=== PATIENT | female | born 1990 | race Hispanic/Latino ===

== ENCOUNTER → 2020-01-07 | Outpatient (REF) | payer OTHER, SELFPAY | LOC: M LAB REF 17:19 | PROVIDERS: ATTEND Nurse Practitioner Family | DX: Z12.4 Encounter for screening for malignant neoplasm of cervix (principal) ==

== ENCOUNTER → 2023-01-01 | Outpatient (CLI) | payer BC, OTHER | LOC: M WHC 06:59 | PROVIDERS: ATTEND Obstetrics & Gynecology | DX: O36.80X0 Pregnancy with inconclusive fetal viability, not applicable or unspecified (principal); Z3A.01 Less than 8 weeks gestation of pregnancy ==

== ENCOUNTER 2023-01-08 08:56 | Emergency (ER) | payer BC, OTHER ==
[~2023-01-08] VITALS: Ht 154.9 cm; Wt 84.1 kg
[2023-01-08 11:40] LABS: BASO % 0.6 % (0.0-1.0); EOS # 0.1 10^3/uL (0.0-0.5); EOS % 0.7 % (0.0-3.0); HEMATOCRIT 39.4 % (36.0-47.0); HEMOGLOBIN 13.6 g/dl (12.0-15.5); LYMPH # 1.7 10^3/uL (1.5-5.0); LYMPH % 23.9 % (24.0-44.0); MEAN CORPUSCULAR HEMOGLOBIN 29.6 pg (27.0-33.0); MEAN CORPUSCULAR HGB CONC 34.5 g/dl (32.0-36.5); MEAN CORPUSCULAR VOLUME 85.7 fl (80.0-96.0); MONO # 0.4 10^3/uL (0.0-0.8); MONO % 5.2 % (2.0-8.0); NEUTROPHILS # 4.9 10^3/uL (1.5-8.5); NEUTROPHILS % 69.3 % (36.0-66.0); PLATELET COUNT, AUTOMATED 195 10^3/uL (150-450); WHITE BLOOD COUNT 7.1 10^3/uL (4.0-10.0)
[2023-01-08 14:33] LABS: GC DNA AMPLIFICATION NEGATIVE (NEGATIVE)
[2023-01-08 14:34] VITALS: BP 127/72; TEMP 98; O2SAT 99
== END 2023-01-08 14:39 | disposition home or self-care (01) ==
LOC: M ED 08:56
DX: O02.1 Missed abortion (principal)

== ENCOUNTER → 2023-04-02 | Outpatient (CLI) | payer BC, OTHER | LOC: M PLALAB 15:30 | PROVIDERS: ATTEND Advanced Practice Midwife | DX: O20.8 Other hemorrhage in early pregnancy (principal) ==

== ENCOUNTER → 2023-04-08 | Outpatient (CLI) | payer BC, OTHER | LOC: M WHC 07:02 | PROVIDERS: ATTEND Advanced Practice Midwife | DX: O20.9 Hemorrhage in early pregnancy, unspecified (principal) ==

== ENCOUNTER → 2023-05-14 | Outpatient (CLI) | payer BC, OTHER ==
[2023-05-14 15:53] LABS: HEMATOCRIT 37.2 % (36.0-47.0); HEMOGLOBIN 12.6 g/dl (12.0-15.5); MEAN CORPUSCULAR HGB CONC 33.9 g/dl (32.0-36.5); MEAN CORPUSCULAR VOLUME 79.8 fl (80.0-96.0); PLATELET COUNT, AUTOMATED 193 10^3/uL (150-450); RED BLOOD COUNT 4.66 10^6/uL (4.00-5.40); WHITE BLOOD COUNT 9.8 10^3/uL (4.0-10.0)
[2023-05-14 17:21] LABS: CHLAMYDIA DNA AMPLIFICATION NEGATIVE (NEGATIVE); GC DNA AMPLIFICATION NEGATIVE (NEGATIVE)
[2023-05-14 18:53] LABS: HIV 1&2 SCREEN NEGATIVE (NEGATIVE)
[2023-05-14 19:02] LABS: HEPATITIS C VIRUS ABY INDEX 0.05 INDEX (<0.8)
== END ==
LOC: M PLALAB 13:15
PROVIDERS: ATTEND Advanced Practice Midwife
DX: Z34.91 Encounter for supervision of normal pregnancy, unspecified, first trimester (principal)

== ENCOUNTER → 2023-06-20 | Outpatient (CLI) | payer BC, OTHER | LOC: M PLALAB 10:04 | PROVIDERS: ATTEND Obstetrics & Gynecology | DX: Z34.92 Encounter for supervision of normal pregnancy, unspecified, second trimester (principal) ==

== ENCOUNTER → 2023-07-11 | Outpatient (CLI) | payer BC, OTHER | LOC: M WHC 08:31 | PROVIDERS: ATTEND Obstetrics & Gynecology | DX: Z34.92 Encounter for supervision of normal pregnancy, unspecified, second trimester (principal); Z3A.19 19 weeks gestation of pregnancy ==

== ENCOUNTER → 2023-08-04 | Outpatient (CLI) | payer BC, OTHER | LOC: M WHC 09:51 | PROVIDERS: ATTEND Obstetrics & Gynecology | DX: Z36.2 Encounter for other antenatal screening follow-up (principal); Z3A.23 23 weeks gestation of pregnancy ==

== ENCOUNTER → 2023-08-27 | Outpatient (CLI) | payer BC, OTHER ==
[2023-08-27 13:26] LABS: HEMATOCRIT 32.4 % (36.0-47.0); HEMOGLOBIN 10.9 g/dl (12.0-15.5); MEAN CORPUSCULAR HEMOGLOBIN 29.1 pg (27.0-33.0); MEAN CORPUSCULAR HGB CONC 33.6 g/dl (32.0-36.5); MEAN CORPUSCULAR VOLUME 86.6 fl (80.0-96.0); PLATELET COUNT, AUTOMATED 158 10^3/uL (150-450); RED BLOOD COUNT 3.74 10^6/uL (4.00-5.40); WHITE BLOOD COUNT 10.3 10^3/uL (4.0-10.0)
[2023-08-27 14:40] LABS: GC DNA AMPLIFICATION NEGATIVE (NEGATIVE)
== END ==
LOC: M PLALAB 09:58
PROVIDERS: ATTEND Obstetrics & Gynecology
DX: Z34.92 Encounter for supervision of normal pregnancy, unspecified, second trimester (principal)

== ENCOUNTER → 2023-09-15 | Outpatient (CLI) | payer BC, OTHER | LOC: M WHC 11:24 | PROVIDERS: ATTEND Specialist | DX: Z34.82 Encounter for supervision of other normal pregnancy, second trimester (principal); Z3A.29 29 weeks gestation of pregnancy ==

== ENCOUNTER → 2023-10-21 | Outpatient (REF) | payer BC, OTHER | LOC: M PLALAB 11:51 | PROVIDERS: ATTEND Advanced Practice Midwife | DX: Z34.83 Encounter for supervision of other normal pregnancy, third trimester (principal) ==

== ENCOUNTER → 2023-11-06 | Outpatient (REF) | payer BC, OTHER | LOC: M PLALAB 12:30 | PROVIDERS: ATTEND Advanced Practice Midwife | DX: O34.211 Maternal care for low transverse scar from previous cesarean delivery (principal); Z3A.00 Weeks of gestation of pregnancy not specified ==

== ENCOUNTER → 2025-04-04 | Outpatient (CLI) | payer BC, OTHER ==
[~2025-04-04] MED LIST: COLA100C5 PO; IBUP80TA PO; OXYC1TAB23 PO; PRENTAB9 PO
== END ==
LOC: M SOG 07:33
PROVIDERS: ATTEND Neuromusculoskeletal Medicine, Sports Medicine
DX: M25.531 Pain in right wrist (principal)